=== PATIENT | female | born 1975 | race African-American/Black ===

== ENCOUNTER 2019-10-04 08:59 | Emergency (ER) | payer OTHER, SELFPAY ==
--- NOTE | 2019-10-04 10:21 | RAD REPORT ---
EXAM DESCRIPTION: RAD - Shoulder Left 2 View - 10/04/2019 9:47 am CLINICAL HISTORY: PAIN COMPARISON: No comparisons FINDINGS: No bone or joint abnormality is detected.
--- NOTE | 2019-10-04 10:22 | ER ---
Nurse's Notes [facility] Name: Angy Garzon Age: 44 yrs Sex: Female : 1975 Arrival Date: 10/04/2019 Time: 09:05 Bed 14 Private MD: Diagnosis: Pain in left shoulder Presentation: 10/04 09:10 Presenting complaint: Patient states: "I had scope done and after I woke up from the aa5 anesthesia all I remember them telling me to roll onto my left shoulder and it's been hurting me since then". Pt c/o left shoulder pain. 09:10 Transition of care: patient was not received from another setting of care. Onset of aa5 symptoms was 2018. Risk Assessment: Do you want to hurt yourself or someone else? Patient reports no desire to harm self or others. Initial Sepsis Screen: Does the patient meet any 2 criteria? No. Patient's initial sepsis screen is negative. Does the patient have a suspected source of infection? No. Patient's initial sepsis screen is negative. Care prior to arrival: None. 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 - Social history:: Smoking status: Patient/guardian denies using tobacco. - Ebola Screening: : No symptoms or risks identified at this time. Screenin:04 Abuse screen: Denies threats or abuse. Nutritional screening: No deficits noted. ae4 Tuberculosis screening: No symptoms or risk factors identified. Fall Risk None identified. Assessment: 10:03 General: Appears in no apparent distress. comfortable, Behavior is calm, cooperative. ae4 Pain: Complains of pain in anterior aspect of left shoulder and posterior aspect of left shoulder. Neuro: Level of Consciousness is awake, alert, obeys commands, Oriented to person, place, time, situation, Appropriate for age. Cardiovascular: Patient's skin is warm and dry. Respiratory: Airway is patent Respiratory effort is even, unlabored, Respiratory pattern is regular, symmetrical. GI: No signs and/or symptoms were reported involving the gastrointestinal system. : No signs and/or symptoms were reported regarding the genitourinary system. EENT: No signs and/or symptoms were reported regarding the EENT system. Derm: Skin is normal, Skin temperature is warm. Musculoskeletal: Range of motion: limited in left shoulder Reports pain in anterior aspect of left shoulder and posterior aspect of left shoulder. Vital Signs: 09:15 BP 105 / 64; Pulse 78; Resp 16 S; Temp 98.0(O); Pulse Ox 100% on R/A; Weight 96.62 kg aa5 (R); Height 5 ft. 5 in. (165.10 cm) (R); Pain 7/10; 10:08 BP 107 / 62; Pulse 75; Resp 16; Temp 97.9; Pulse Ox 100% on R/A; mh5 09:15 Body Mass Index 35.44 (96.62 kg, 165.10 cm) aa5 ED Course: 09:05 Patient arrived in ED. rg4 09:08 Triage completed. la1 09:10 Arm band placed on Patient placed in an exam room, on a stretcher. aa5 09:14 Ming Maciel PA is PHCP. jr8 09:14 Kane Ricks MD is Attending Physician. jr8 09:26 Juan Melendez, MARTA is Primary Nurse. ae4 09:47 XRAY Shoulder LEFT 2 view In Process Unspecified. EDMS 10:04 Bed in low position. Call light in reach. Side rails up X 1. Pulse ox on. NIBP on. ae4 10:20 Alfonso Dickson MD is Referral Physician. jr8 10:36 No provider procedures requiring assistance completed. Patient did not have IV access ae4 during this emergency room visit. Administered Medications: No medications were administered Outcome: 10:21 Discharge ordered by . jr8 10:36 Discharged to home ambulatory. ae4 10:36 Condition: stable 10:36 Discharge instructions given to patient, Instructed on discharge instructions, follow up and referral plans. medication usage, Demonstrated understanding of instructions, Prescriptions given X 3. 10:36 Patient left the ED. ae4 Signatures: Dispatcher [employer] EDTX Holli Browning RN RN aa5 Ming Maciel PA PA jr8 Arian Pineda RN RN la1 Helga Celis rg4 Francine Jenkins 5 Juan Melendez RN RN ae4 Corrections: (The following items were deleted from the chart) 09: Immunization history: Adult Immunizations up to date, pa 09:07 Social history: Smoking status: Patient/guardian denies using tobacco, pa 09:07 Ebola Screening: No symptoms or risks identified at this time pa 09:07 Allergies: Betadine; pa 09:07 PMHx: psoriasis; [facility] 09:08 Presenting complaint: Patient states: I have been having back pain since pa yesterday and today when I woke up I feel like I am swollen all over. pa 09:08 Transition of care: patient was not received from another setting of care. pa 09:08 Onset of symptoms was October 04, 2019 [facility] 09:08 Risk Assessment: Do you want to hurt yourself or someone else? Patient reports no [facility] desire to harm self or others. pa 09:08 Initial Sepsis Screen: Does the patient meet any 2 criteria? No. [facility]'s [facility] initial sepsis screen is negative. Does the patient have a suspected source of infection? No. Patient's initial sepsis screen is negative. pa 09:08 Care prior to arrival: None. pa 09:08 Method Of Arrival: Ambulatory pa 09:08 Acuity: KENNEY 3 [facility] 09:08 BP 122 / 78; Pulse 70bpm; Resp 15bpm; Pulse Ox 100% RA; Temp 97.3F; 102.06 kg; pa Height 5 ft. 10 in.; BMI: 32.2; 09:08 LMP 2017 09:08 Arm band placed on right wrist. [facility]
--- NOTE | 2019-10-04 10:22 | EDPHYS ---
Physician Documentation [facility] Name: Angy Garzon Age: 44 yrs Sex: Female : 1975 Arrival Date: 10/04/2019 Time: 09:05 Bed 14 Private MD: ED Physician Kane Ricks HPI: 10/04 09:34 This 44 yrs old Black Female presents to ER via Ambulatory with complaints of shoulder jr8 pain. 09:35 The patient or guardian complains of decreased range of motion, pain. left shoulder. jr8 Context: The problem was sustained at an unknown site, resulted from an unknown reason, The patient experiences decreased range of motion, when attempts to raise arm, The patient reports no obvious deformity. Onset: The symptoms/episode began/occurred gradually, 2 week(s) ago. Modifying factors: the symptoms are alleviated by nothing. The symptoms are aggravated by lifting weight, movement. Associated signs and symptoms: The patient has no apparent associated signs or symptoms. Severity of symptoms: At their worst the symptoms were moderate, in the emergency department the symptoms are unchanged. The patient has not experienced similar symptoms in the past. The patient has not recently seen a physician. Patient stated that she had EGD procedure earlier in the month. Stated that a few days after that started to have left shoulder pain. Decreased ROM with tenderness to Left shoulder radiating to left neck region. Denies trauma or other complaints . 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 - Social history:: Smoking status: Patient/guardian denies using tobacco. - Ebola Screening: : No symptoms or risks identified at this time. ROS: 09:35 Constitutional: Negative for fever, chills, and weight loss. jr8 09:35 MS/extremity: Positive for decreased range of motion, pain, tenderness, of the left shoulder. 09:35 All other systems are negative. Exam: 09:35 Eyes: Pupils equal round and reactive to light, extra-ocular motions intact. Lids and jr8 lashes normal. Conjunctiva and sclera are non-icteric and not injected. Cornea within normal limits. Periorbital areas with no swelling, redness, or edema. ENT: Nares patent. No nasal discharge, no septal abnormalities noted. Tympanic membranes are normal and external auditory canals are clear. Oropharynx with no redness, swelling, or masses, exudates, or evidence of obstruction, uvula midline. Mucous membranes moist. Neck: Trachea midline, no thyromegaly or masses palpated, and no cervical lymphadenopathy. Supple, full range of motion without nuchal rigidity, or vertebral point tenderness. No Meningismus. Chest/axilla: Normal chest wall appearance and motion. Nontender with no deformity. No lesions are appreciated. Cardiovascular: Regular rate and rhythm with a normal S1 and S2. No gallops, murmurs, or rubs. Normal PMI, no JVD. No pulse deficits. Respiratory: Lungs have equal breath sounds bilaterally, clear to auscultation and percussion. No rales, rhonchi or wheezes noted. No increased work of breathing, no retractions or nasal flaring. Abdomen/GI: Soft, non-tender, with normal bowel sounds. No distension or tympany. No guarding or rebound. No evidence of tenderness throughout. Skin: Warm, dry with normal turgor. Normal color with no rashes, no lesions, and no evidence of cellulitis. Neuro: Awake and alert, GCS 15, oriented to person, place, time, and situation. Cranial nerves II-XII grossly intact. Motor strength 5/5 in all extremities. Sensory grossly intact. Cerebellar exam normal. Normal gait. 09:35 Back: pain, that is mild, of the left trapezius, ROM is normal, normal spinal alignment noted, vertebral tenderness, is not appreciated. 09:35 Musculoskeletal/extremity: Extremities: grossly normal except: noted in the left shoulder: Patient has pain with abduction, anterior flexion of shoulder. No point tenderness. Pain located to glenoid region with manipulation. No obvious deformity or other signs of trauma noted , Circulation is intact in all extremities. Sensation intact. Vital Signs: 09:15 BP 105 / 64; Pulse 78; Resp 16 S; Temp 98.0(O); Pulse Ox 100% on R/A; Weight 96.62 kg aa5 (R); Height 5 ft. 5 in. (165.10 cm) (R); Pain 7/10; 10:08 BP 107 / 62; Pulse 75; Resp 16; Temp 97.9; Pulse Ox 100% on R/A; 5 09:15 Body Mass Index 35.44 (96.62 kg, 165.10 cm) aa5 MDM: 09:23 Patient medically screened. jr8 10:20 Data reviewed: vital signs, nurses notes, radiologic studies, plain films. Data jr8 interpreted: Pulse oximetry: on room air is 100 %. Interpretation: normal. Counseling: I had a detailed discussion with the patient and/or guardian regarding: the historical points, exam findings, and any diagnostic results supporting the discharge/admit diagnosis, radiology results, the need for outpatient follow up, a orthopedic surgeon, to return to the emergency department if symptoms worsen or persist or if there are any questions or concerns that arise at home. 10/04 09:31 Order name: XRAY Shoulder LEFT 2 view; Complete Time: 10:28 jr8 Administered Medications: No medications were administered Disposition: 11:43 Co-signature as Attending Physician, Kane Ricks MD I agree with the assessment and kdr plan of care. Disposition: 10/04/19 10:21 Discharged to Home. Impression: Pain in left shoulder. - Condition is Stable. - Discharge Instructions: Joint Pain, Shoulder Pain. - Prescriptions for Mobic 15 mg Oral tablet - take 1 tablet by ORAL route once daily As needed; 20 tablet. Robaxin 500 mg Oral Tablet - take 2 tablet by ORAL route every 6 hours As needed; 40 tablet. Medrol (Paddy) 4 mg Oral Tablets, Dose Pack - take 1 tablet by ORAL route as directed - follow package instructions; 1 packet. - Medication Reconciliation Form, Thank You Letter, Antibiotic Education, Prescription Opioid Use form. - Follow up: Alfonso Dickson MD; When: 5 - 6 days; Reason: Recheck today's complaints, Continuance of care, Re-evaluation by your physician. - Problem is new. - Symptoms have improved. Signatures: Dispatcher [employer] EDMS Kane Ricks MD MD [facility] Holli Browning, RN RN aa5 Ming Maciel PA PA jr8 Arian Pineda RN RN la1 Juan Melendez RN RN ae4 Corrections: (The following items were deleted from the chart) 09:10 09:07 Immunization history: Adult Immunizations up to date, rand gordillo 09:07 Social history: Smoking status: Patient/guardian denies using tobacco, rnad gordillo 09:07 Ebola Screening: No symptoms or risks identified at this time rand gordillo 09:07 Allergies: Betadine; rand gordillo 09:07 PMHx: psoriasis; rand gordillo 10:36 10:21 10/04/2019 10:21 Discharged to Home. Impression: Pain in left shoulder. Condition ae4 is Stable. Forms are Medication Reconciliation Form, Thank You Letter, Antibiotic Education, Prescription Opioid Use. Follow up: Dr. Alfonso Dickson; When: 5 - 6 days; Reason: Recheck today's complaints, Continuance of care, Re-evaluation by your physician. Problem is new. Symptoms have improved. jr8
[2019-10-04 10:44] VITALS: O2SAT 100
[2019-10-04 10:46] VITALS: BP 107/62; TEMP 97.9
== END 2019-10-04 10:36 | disposition home or self-care (01) ==
LOC: ER 08:59
DX: M25.512 Pain in left shoulder (principal)
CPT/HCPCS: 99283